=== PATIENT | female | born 1935 | race Caucasian/White ===

== ENCOUNTER 2022-12-04 21:43 | Emergency (ER) | payer OTHER ==
[~2022-12-04] VITALS: Ht 152.4 cm; Wt 52.2 kg
[2022-12-04] MEDS ORDERED: CIPRO500 MG PO (23:17)
[2022-12-05] MEDS ORDERED: LISINOPRIL10 MG (23:44)
== END 2022-12-05 | disposition home or self-care (01) ==
LOC: ER 21:43 → EDBD 12-05 00:33 → ER 12-05 00:33
DX: S51.021A Laceration with foreign body of right elbow, initial encounter (principal); W18.39XA Other fall on same level, initial encounter; Y93.89 Activity, other specified; Y92.480 Sidewalk as the place of occurrence of the external cause

== ENCOUNTER 2022-12-05 23:35 | Emergency (ER) | payer OTHER ==
[~2022-12-05] VITALS: Ht 165.1 cm; Wt 54.4 kg
[~2022-12-05 23:35] MED LIST: CIPRO500 MG PO
[2022-12-05] MEDS ORDERED: LISINOPRIL10 MG (23:44)
== END 2022-12-06 02:42 | disposition home or self-care (01) ==
LOC: ER 23:35 → EDBD 23:47 → ER 23:47
DX: M79.604 Pain in right leg (principal)